=== PATIENT | female | born 1950 | race Two or more races ===

== ENCOUNTER 2024-01-25 14:42 | Emergency (ER) | payer OTHER ==
[~2024-01-25] VITALS: Ht 162.6 cm; Wt 68.0 kg
[2024-01-25] MEDS ORDERED: CRESTOR40 MG PO (15:11)
[2024-01-25] MEDS ORDERED: ARICEPT5 MG (15:11)
[2024-01-25] MEDS ORDERED: DEXLANSOPRAZOLE60 MG PO (15:12)
[2024-01-25] MEDS ORDERED: FAMOTIDINE/PF 20 MG/2 ML VIAL IV ONE (16:30)
[2024-01-25] MEDS ORDERED: ONDANSETRON HCL 2 MG/ML VIAL IV ONE (16:30)
[2024-01-25] MEDS ORDERED: BUTALB/ACETAMINOPHEN/CAFFEINE 1 TAB TABLET PO ONE (16:30)
[2024-01-25] MEDS ORDERED: 0.9 % SODIUM CHLORIDE 500 ML IV ONE (16:30)
[2024-01-25 17:11] LABS: HEMATOCRIT 46.8 % (36.0-45.00); HEMOGLOBIN 15.5 g/dL (12.0-15.00); MEAN CELL VOLUME 98.5 fL (80.00-100.00); MEAN CORPUSCULAR HEMOGLOBIN 32.6 pg (27.00-32.0); MEAN CORPUSCULAR HGB CONC 33.1 g/dl (32.0-36.0); PLATELET COUNT 393 K/uL (150-450); RED BLOOD COUNT 4.75 M/uL (4.00-6.00); RED CELL DISTRIBUTION WIDTH 14.3 % (11.5-14.5)
[2024-01-25 17:36] LABS: ALBUMIN 4.5 gm/dL (3.4-5.0); BILIRUBIN TOTAL 0.61 mg/dL (0.3-1.2); CALCIUM 10.1 mg/dL (8.5-10.1); CREATININE SERUM 0.73 mg/dL (0.55-1.02); GFR 78.37; GLOBULINA 4.9 G/DL (2.4-3.5); POTASSIUM 4.08 mEq/L (3.5-5.1); TOTAL PROTEIN 9.4 gm/dL (6.4-8.2)
[2024-01-25 19:52] LABS: URINE APPEARANCE Clear; URINE BILIRRUBIN Negative (NEGATIVE); URINE BLOOD Negative; URINE COLOR Dark Yellow; URINE GLUCOSE Negative (NEGATIVE); URINE LEUKOCYTE Negative; URINE NITRATE Negative; URINE PROTEIN Trace (NEGATIVE); URINE UROBILINOGEN 0.2 E.U./dl
[2024-01-25 19:57] LABS: URINE EPITHELIAL CELLS 31.6 uL (0.0-38.8); URINE RBC 13.1 uL (0.0-20.8); URINE WBC 12.8 uL (0.0-23.2)
[2024-01-25 20:02] LABS: URINE KETONE 80 (NEGATIVE)
== END 2024-01-25 22:36 ==
LOC: ER 14:44
PROVIDERS: Nurse Practitioner Family
DX: R10.9 Unspecified abdominal pain (principal); K59.00 Constipation, unspecified; R11.2 Nausea with vomiting, unspecified; G43.909 Migraine, unspecified, not intractable, without status migrainosus; K57.32 Diverticulitis of large intestine without perforation or abscess without bleeding; M06.8A Other specified rheumatoid arthritis, other specified site; Z85.89 Personal history of malignant neoplasm of other organs and systems; J47.9 Bronchiectasis, uncomplicated